=== PATIENT | male | born 1990 | race Caucasian/White ===

== ENCOUNTER → 2020-09-22 13:29 | Outpatient (CLI) | payer SELFPAY ==
[2020-09-22 15:28] LABS: Liquefaction Semen YES (YES); PH Semen 8 (7-8); Sperm Count 41 x10^6/mL (20-150); Sperm Motility 80% % Motile; Volume Semen 5.5 (1.0-5.0)
[2020-09-22 15:29] LABS: Sperm Morphology 40 %ABNORM (0-30)
== END ==
PROVIDERS: Referring Provider Obstetrics & Gynecology; Visit Provider Obstetrics & Gynecology
DX: Z31.41 Encounter for fertility testing (principal)
CPT/HCPCS: 89320